=== PATIENT | male | born 1960 | race African-American/Black ===

== ENCOUNTER 2017-10-11 18:39 | Emergency (ER) | payer SELFPAY, OTHER ==
[2017-10-11 19:37] LABS: ANION GAP 11 (6-14); BLOOD UREA NITROGEN 5 mg/dL (8-26); BUN/CREATININE RATIO 7 (6-20); CALCIUM 8.7 mg/dL (8.5-10.1); CARBON DIOXIDE 27 mmol/L (21-32); CHLORIDE 101 mmol/L (98-107); CREATININE 0.7 mg/dL (0.7-1.3); GFR 140.7; GLUCOSE 153 mg/dL (70-99); SODIUM 139 mmol/L (136-145)
[2017-10-11 19:42] LABS: BASO # 0.1 x10^3/uL (0.0-0.2); BASO % 1 % (0-3); EOS # 0.2 x10^3/uL (0.0-0.7); EOS % 2 % (0-3); HEMATOCRIT 26.6 % (39.0-53.0); LYMPH # 4.7 x10^3/uL (1.0-4.8); LYMPH % 60 % (24-48); MEAN CORPUSCULAR HEMOGLOBIN 19 pg (25-35); MEAN CORPUSCULAR HGB CONC 30 g/dL (31-37); MEAN CORPUSCULAR VOLUME 62 fL (79-100); MONO # 0.5 x10^3/uL (0.0-1.1); MONO % 7 % (0-9); NEUT # 2.3 x10^3uL (1.8-7.7); NEUT % 30 % (31-73); PLATELET COUNT 321 x10^3/uL (140-400); RED BLOOD COUNT 4.29 x10^6/uL (4.30-5.70); RED CELL DISTRIBUTION WIDTH 19.4 % (11.5-14.5); WHITE BLOOD COUNT 7.8 x10^3/uL (4.0-11.0)
[2017-10-11 19:43] LABS: ALBUMIN 3.6 g/dL (3.4-5.0); ALBUMIN/GLOBULIN RATIO 0.9 (1.0-1.7); ALK PHOS 98 U/L (46-116); ALT (SGPT) 24 U/L (16-63); AST (SGOT) 23 U/L (15-37); LIPASE 142 U/L (73-393); TOTAL BILIRUBIN 0.7 mg/dL (0.2-1.0); TOTAL PROTEIN 7.4 g/dL (6.4-8.2)
[2017-10-11 19:45] LABS: ADD MAN DIFF? YES
[2017-10-11 19:47] LABS: TROPONINI < 0.017 ng/mL (0.000-0.055)
[2017-10-11 19:48] LABS: NT-PRO BNP 203 pg/mL (0-124)
[2017-10-11] MEDS: IV NORMAL SALINE 1000ML BAG 1,000 ML IV (19:50)
[2017-10-11 19:56] LABS: INR 1.2 (0.8-1.1); PROTHROMBIN TIME PATIENT 14.1 SEC (11.7-14.0)
[2017-10-11 20:05] LABS: D-DIMER < 0.19 ug/mlFEU (0.00-0.50)
[2017-10-11 20:42] LABS: % EOS 2 % (0-5); % LYMPHS 44 % (24-48); % MONOS 10 % (0-10); % SEGS 44 % (35-66); OVALOCYTES OCC; PLT ESTIMATE INCREASED (ADEQUATE); POLYCHROMASIA SLIGHT
[2017-10-11 20:43] LABS: SCHISTOCYTES OCC
== END 2017-10-11 21:17 | disposition home or self-care (01) ==
LOC: ER 21:17
DX: R42 Dizziness and giddiness (principal); R00.2 Palpitations; I10 Essential (primary) hypertension; Z79.899 Other long term (current) drug therapy; [UNRECOGNIZED DIAGNOSIS CODE]
CPT/HCPCS: 36415; 71045; 80053; 83690; 83880; 84484; 85007; 85025; 85379; 85610; 93005; 96360; 99285-25; J7030